=== PATIENT | male | born 1955 | race Caucasian/White ===

== ENCOUNTER 2017-11-04 20:06 | Emergency (ER) | payer MEDICARE, BC ==
[~2017-11-04] VITALS: Ht 177.8 cm; Wt 106.0 kg
[2017-11-04] MEDS ORDERED: NAPROSYN500 MG PO (20:49)
[2017-11-04 20:51] VITALS: BP 146/96
== END 2017-11-04 20:55 | disposition home or self-care (01) ==
LOC: ED 20:06
DX: S93.601A Unspecified sprain of right foot, initial encounter (principal); X58.XXXA Exposure to other specified factors, initial encounter; Y93.31 Activity, mountain climbing, rock climbing and wall climbing; Y92.828 Other wilderness area as the place of occurrence of the external cause

== ENCOUNTER 2022-11-12 14:15 | Emergency (ER) | payer MEDICARE, BC ==
[~2022-11-12] VITALS: Ht 177.8 cm; Wt 90.7 kg
[~2022-11-12 14:15] MED LIST: NAPROSYN500 MG PO
[2022-11-12] MEDS ORDERED: KEFLEX500 MG PO (15:14)
== END 2022-11-12 15:30 | disposition home or self-care (01) ==
LOC: ED 14:15
PROC: 0HQ1XZZ Repair Face Skin, External Approach (ICD-10-PCS; principal; 2022-11-12)
DX: S01.81XA Laceration without foreign body of other part of head, initial encounter (principal); W22.8XXA Striking against or struck by other objects, initial encounter; Y93.89 Activity, other specified

== ENCOUNTER 2024-11-01 12:46 | Emergency (ER) | payer MEDICARE, BC ==
[~2024-11-01] VITALS: Ht 177.8 cm; Wt 92.9 kg
[~2024-11-01 12:46] MED LIST changes: +KEFLEX500 MG PO
[2024-11-01 12:52] VITALS: BP 137/91
[2024-11-01 13:01] VITALS: BP 147/69
[2024-11-01] MEDS ORDERED: VIBRAMYCIN100 M2 PO (13:11)
[2024-11-01 13:15] VITALS: BP 135/80
[2024-11-01 13:24] VITALS: BP 135/80
== END 2024-11-01 13:29 | disposition home or self-care (01) ==
LOC: ED 12:46
DX: S30.860A Insect bite (nonvenomous) of lower back and pelvis, initial encounter (principal); W57.XXXA Bitten or stung by nonvenomous insect and other nonvenomous arthropods, initial encounter